=== PATIENT | female | born 1980 | race Caucasian/White ===

== ENCOUNTER 2017-01-26 09:39 | Emergency (ER) | payer BC, OTHER ==
[2017-01-26 09:46] VITALS: BP 93/50
[2017-01-26] MEDS ORDERED: Sodium Chloride 0.9% 500 ML IV ONE (10:14)
[2017-01-26] MEDS ORDERED: methylPREDNISolone Sodium Succinate 125 MG/2 ML SDV IVPUSH ONE (10:14)
[2017-01-26] MEDS ORDERED: Ondansetron 4 MG/2 ML SDV IVPUSH ONE (10:14)
[2017-01-26] MEDS ORDERED: Sodium Chloride 0.9% 10 ML Syringe FLUSH PRN (10:15)
[2017-01-26] MEDS ORDERED: Meclizine 12.5 MG Tab PO ONE (11:27)
--- NOTE | 2017-01-26 11:27 | EDM.PDOC ---
ED HPI GENERAL MEDICAL PROBLEM - General Chief Complaint: ENT Problem Stated Complaint: VERTIGO Time Seen by Provider: 01/26/17 10:01 Source of Information: Reports: Patient, RN Notes Reviewed - History of Present Illness INITIAL COMMENTS - FREE TEXT/NARRATIVE: 36-year-old female comes in with severe vertigo. Onset of this about 30-40 minutes prior to arrival. She was not doing anything in particular at time of onset, just "stapling some papers". She's never had anything of this nature before. Describes severe spinning type vertigo dizziness somewhat better at rest closing her eyes and not moving her head. Any type of motion of her head and even having her eyes open does make the vertigo worse. She's had some nausea and vomiting with this. No recent headache. Has had some nasal and sinus congestion recently. Some very mild right-sided ear pressure. No fever or chills. No numbness, tingling, weakness or clumsiness. - Related Data Allergies Allergy/AdvReac Type Severity Reaction Status Date / Time No Known Allergies Allergy Verified 01/26/17 09:46 Home Meds: Home Meds . [No Known Home Meds] 01/26/17 [History] Past Medical History - Past Surgical History HEENT Surgical History: Reports: Oral Surgery Female Surgical History: Reports: Hysterectomy, Tubal Ligation Musculoskeletal Surgical History: Reports: Arthroscopic Knee Social & Family History - Tobacco Use Smoking Status *Q: Current Every Day Smoker Years of Tobacco use: 20 Packs/Tins Daily: 0.5 - Caffeine Use Caffeine Use: Reports: Coffee - Recreational Drug Use Recreational Drug Use: No ED ROS GENERAL - Review of Systems Review Of Systems: See Below Constitutional: Denies: Fever, Chills HEENT: Reports: Ear Pain (there has been intermittent pressure sensation right ear), Rhinitis, Sinus Problem (there has been nasal and sinus congestion for the past week), Vertigo (sudden onset about 30 minutes prior to arrival). Denies: Ear Discharge, Throat Pain, Vision Change Respiratory: Reports: Cough. Denies: Shortness of Breath Cardiovascular: Denies: Chest Pain (occasional nonproductive) GI/Abdominal: Reports: Nausea. Denies: Abdominal Pain, Diarrhea, Vomiting Musculoskeletal: Reports: Joint Pain (patient states her joints of felt "achy the last several days especially today"), Other (she is also had some achiness of her musculature past several days) Skin: Denies: Rash Neurological: Reports: Difficulty Walking (vertigo is much worse with motion). Denies: Dizziness, Headache (vertigo), Numbness, Tingling, Trouble Speaking, Weakness, Change in Speech ED EXAM, DIZZINESS - Physical Exam Exam: See Below General Appearance: Alert, Moderate Distress Eye Exam: Bilateral Eye: PERRL, Other (mild resting nystagmus) Nystagmus: reproducible (worse with motion of head to either direction) Throat/Mouth: Normal Inspection, Normal Oropharynx Head Exam: Atraumatic. No: Facial Swelling, Facial Tenderness Neck: Supple. No: Lymphadenopathy (L), Lymphadenopathy (R) Respiratory/Chest: No Respiratory Distress, Lungs Clear, Normal Breath Sounds Cardiovascular: Regular Rate, Rhythm GI/Abdominal: Soft, Non-Tender Neurological: Alert, No Motor/Sensory Deficits Back Exam: No: CVA Tenderness (L), CVA Tenderness (R) Extremities: Normal Inspection, Normal Range of Motion Skin Exam: Warm, Dry, Normal Color Course - Vital Signs Last Recorded V/S: Last Vital Signs Temp 98.0 F 01/26/17 09:44 Pulse 78 01/26/17 09:44 Resp 16 01/26/17 09:44 BP 93/50 L 01/26/17 09:44 Pulse Ox 97 01/26/17 09:44 - Orders/Labs/Meds Orders: Active Orders 24 hr Category Date Time Status Peripheral IV Care [RC] . DIRECTED Care 01/26/17 10:15 Active Head wo Cont [CT] Stat Exams 01/26/17 11:28 Taken Max Facial Sinus wo Cont [CT] Stat Exams 01/26/17 11:28 Taken Sodium Chloride 0.9% [Saline Flush] Med 01/26/17 10:15 Active 10 ml FLUSH ASDIRECTED PRN Peripheral IV Insertion Adult [OM.PC] Stat Oth 01/26/17 10:14 Ordered Medication Orders Sodium Chloride (Saline Flush) 10 ml FLUSH ASDIRECTED PRN PRN Reason: Keep Vein Open Last Admin: 01/26/17 10:43 Dose: 10 ml Labs: Laboratory Tests 01/26/17 01/26/17 Range/Units 10:25 10:25 WBC 14.99 H (3.98-10.04) K/mm3 RBC 4.64 (3.98-5.22) M/mm3 Hgb 14.4 (11.2-15.7) gm/L Hct 42.1 (34.1-44.9) % MCV 90.7 (79.4-94.8) fl MCH 31.0 (25.6-32.2) pg MCHC 34.2 (32.2-35.5) g/dl RDW Std Deviation 42.6 (36.4-46.3) fL Plt Count 308 (182-369) K/mm3 MPV 10.3 (9.4-12.3) fl Neut % (Auto) 75.6 H (34.0-71.1) % Lymph % (Auto) 16.0 L (19.3-51.7) % [place] % (Auto) 4.8 (4.7-12.5) % Eos % (Auto) 3.3 (0.7-5.8) Baso % (Auto) 0.2 (0.1-1.2) % Neut # (Auto) 11.33 H (1.56-6.13) K/mm3 Lymph # (Auto) 2.40 (1.18-3.74) K/mm3 [place] # (Auto) 0.72 H (0.24-0.36) K/mm3 Eos # (Auto) 0.49 H (0.04-0.36) K/mm3 Baso # (Auto) 0.03 (0.01-0.08) K/mm3 Sodium 137 (136-145) mEq/L Potassium 4.3 (3.5-5.1) mEq/L Chloride 105 (98-107) mEq/L Carbon Dioxide 25 (21-32) mEq/L Anion Gap 11.3 (5-15) BUN 9 (7-18) mg/dL Creatinine 0.9 (0.55-1.02) mg/dL Est Cr Clr Drug Dosing TNP Estimated GFR (MDRD) > 60 (>60) mL/min BUN/Creatinine Ratio 10.0 L (14-18) Glucose 94 (74-106) mg/dL Calcium 9.0 (8.5-10.1) mg/dL Total Bilirubin 0.5 (0.2-1.0) mg/dL AST 15 (15-37) U/L ALT 19 (14-59) U/L Alkaline Phosphatase 58 (46-116) U/L Total Protein 7.1 (6.4-8.2) g/dl Albumin 3.8 (3.4-5.0) g/dl Globulin 3.3 gm/dL Albumin/Globulin Ratio 1.2 (1-2) Meds: Medications Generic Name Dose Route Start Last Admin Trade Name Frecarlene PRN Reason Stop Dose Admin Sodium Chloride 10 ml 01/26/17 10:15 01/26/17 10:43 Saline Flush FLUSH 10 ml ASDIRECTED PRN Administration Keep Vein Open Discontinued Medications Generic Name Dose Route Start Last Admin Trade Name Freq PRN Reason Stop Dose Admin Diazepam 2 mg 01/26/17 10:15 01/26/17 10:44 Valium IVPUSH 01/26/17 10:16 2 mg ONETIME ONE Administration Sodium Chloride 500 mls @ 999 mls/hr 01/26/17 10:14 01/26/17 10:36 Normal Saline IV 01/26/17 10:44 999 mls/hr .BOLUS ONE Administration Meclizine HCl 12.5 mg 01/26/17 11:27 01/26/17 11:35 Antivert PO 01/26/17 11:28 12.5 mg ONETIME ONE Administration Methylprednisolone Sodium Succinate 125 mg 01/26/17 10:14 01/26/17 10:43 Solu-Medrol IVPUSH 01/26/17 10:15 125 mg ONETIME ONE Administration Ondansetron HCl 4 mg 01/26/17 10:14 01/26/17 10:43 Zofran IVPUSH 01/26/17 10:15 4 mg ONETIME ONE Administration Departure - Departure Time of Disposition: 14:23 Disposition: Home, Self-Care 01 Condition: Fair Clinical Impression: Labyrinthitis Qualifiers: Laterality: unspecified laterality Qualified Code(s): H83.09 - Labyrinthitis, unspecified ear - Discharge Information Referrals: PCP,None [Primary Care Provider] - Forms: ED Department Discharge Additional Instructions: rest, continue to move slowly and carefully for the next 2 to days as discussed , increase activity slowly as tolerated. antivert 12.5 mg, 1/2 of 25 mg tablet twice daily today and tomorrow or until after symptoms have completely resolved. Follow up clinic if not back to normal within 3 to 5 days as expected , return to ED if symptoms worsening in any way. - My Orders Last 24 Hours: My Active Orders 01/26/17 10:14 Peripheral IV Insertion Adult [OM.PC] Stat 01/26/17 10:15 Peripheral IV Care [RC] . DIRECTED Sodium Chloride 0.9% [Saline Flush] 10 ml FLUSH ASDIRECTED PRN 01/26/17 11:28 Head wo Cont [CT] Stat Max Facial Sinus wo Cont [CT] Stat - Assessment/Plan Last 24 Hours: My Active Orders 01/26/17 10:14 Peripheral IV Insertion Adult [OM.PC] Stat 01/26/17 10:15 Peripheral IV Care [RC] . DIRECTED Sodium Chloride 0.9% [Saline Flush] 10 ml FLUSH ASDIRECTED PRN 01/26/17 11:28 Head wo Cont [CT] Stat Max Facial Sinus wo Cont [CT] Stat
--- NOTE | 2017-01-28 10:33 | CT ---
Head CT Technique: Multiple axial sections through the brain were obtained. Intravenous contrast was not utilized. Comparison: No previous intracranial imaging is available. Findings: Ventricles along with basal cisterns and sulci over the convexities are within normal limits for the patient's age. No abnormal parenchymal densities are seen. No evidence of intracranial hemorrhage. No midline shift or mass effect is identified. Bone window settings were reviewed which show mild mucosal thickening within the ethmoid sinuses. No acute calvarial abnormality is seen. Impression: 1. Slight sinus findings which are believed to be incidental. 2. No acute intracranial abnormality is seen. Agree with preliminary report issued by [employer] ([facility] report finalized on 01/26/2017 at 1:06 PM Central Time) Diagnostic code #2
--- NOTE | 2017-01-28 10:33 | CT ---
CT paranasal sinuses Technique: Multiple axial sections through the paranasal sinuses were obtained. Reconstructed coronal and sagittal images were obtained. Comparison: No previous study. Findings: Mild mucosal thickening seen within the ethmoid sinuses. Other paranasal sinuses are clear. No air-fluid levels are seen within the paranasal sinuses. Mastoid sinuses and middle ear cavities are clear. No acute bony abnormality is seen. Impression: 1. Mild mucosal thickening within the ethmoid sinuses. 2. No additional abnormality identified on CT study of the sinuses. Diagnostic code #2 I agree with preliminary report issued by [facility] ([facility] report finalized on 01/26/17, 1:06 PM Central Time)
== END 2017-01-26 14:46 | disposition home or self-care (01) ==
LOC: JD.ED 09:39
DX: H83.09 Labyrinthitis, unspecified ear (principal); F17.210 Nicotine dependence, cigarettes, uncomplicated; Z90.710 Acquired absence of both cervix and uterus; Z98.890 Other specified postprocedural states
CPT/HCPCS: 36415; 70450; 70486; 80053; 85025; 96361; 96374; 96375; 99284; A9270; J2405; J2930; J3360; J7040; J7050; 99283